=== PATIENT | female | born 1960 | race Two or more races ===

== ENCOUNTER 2018-12-02 20:13 | Emergency (ER) | payer SELFPAY ==
[~2018-12-02] VITALS: Ht 152.4 cm; Wt 68.0 kg
[2018-12-02] MEDS ORDERED: ATENOLOL25 MG ORAL (20:39)
--- NOTE | 2018-12-02 20:44 | NUR ---
ED Nurse Note: pt walked in due to left leg swelling and pain x 3 weeks. Pt is AO x 4times, VSS, on room air no distress. MARTINEZD seen Pt at bedside.
[2018-12-02 21:20] VITALS: BP 142/87
[2018-12-02] MEDS ORDERED: CEPHALEXIN500 MG ORAL (22:22)
[2018-12-02 22:35] VITALS: BP 144/75
--- NOTE | 2018-12-02 22:35 | NUR ---
ER DISCHARGE NOTE: Patient is cleared to be discharged per ERMD, pt is aox4, on room air, with stable vital signs. pt was given dc and prescription instructions, pt was able to verbalize understanding, pt id band removed without complications. pt is able to ambulate with steady gait with . pt took all belongings.
--- NOTE | 2018-12-03 01:09 | Emergency Room Report ---
History of Present Illness General Chief Complaint: Edema Source: Patient Present Illness HPI 58-year-old female presents ED for evaluation. Complaining of left leg pain and swelling 3 weeks. Pain is dull, 7 out of 10, nonradiating. Denies fevers or chills. Denies chest pain or shortness of breath. No other aggravating relieving factors. Denies any other associated symptoms Allergies: Coded Allergies: No Known Allergies (Unverified , 12/02/18) Patient History Past Medical History: HTN Past Surgical History: none Pertinent Family History: none Social History: Denies: smoking, alcohol use, drug use Last Menstrual Period: 8 years ago Now: No Immunizations: UTD Reviewed Nursing Documentation: PMH: Agreed; PSxH: Agreed Nursing Documentation-PMH Hx Hypertension: Yes - migraine Review of Systems All Other Systems: negative except mentioned in HPI Physical Exam Vital Signs Date Time Temp Pulse Resp B/P (MAP) Pulse Ox O2 Delivery O2 Flow Rate FiO2 12/02/18 20:32 98.4 59 16 197/90 95 Room Air Sp02 EP Interpretation: reviewed, normal General Appearance: no apparent distress, alert, GCS 15, non-toxic Head: normocephalic Eyes: bilateral eye normal inspection, bilateral eye PERRL ENT: normal ENT inspection Neck: normal inspection Respiratory: normal inspection Cardiovascular #1: normal inspection Gastrointestinal: normal inspection Rectal: deferred Genitourinary: no CVA tenderness Musculoskeletal: back normal, gait/station normal, normal range of motion, calf tenderness - L calf swelling, swelling Neurologic: alert, oriented x3, responsive, motor strength/tone normal, sensory intact, speech normal Psychiatric: normal inspection Skin: normal inspection Lymphatic: normal inspection Medical Decision Making Diagnostic Impression: Primary Impression: Cellulitis of lower extremity Qualified Codes: L03.116 - Cellulitis of left lower limb ER Course Hospital Course 58-year-old female present ED complaining of left calf pain and swelling Differential diagnoses include: DVT, cellulitis, contusion, abscess Clinical course Patient placed on stretcher after initial history and physical I ordered DVT US Doppler ultrasound shows no evidence of DVT there is some mild erythema and induration. Consideration for cellulitis. Patient afebrile, nontoxic appearing. discussed findings with patient and at bedside. We will discharge with antibiotics. Safe for discharge or close outpatient follow-up. Patient does not have a PMD. We'll provide referrals I. I feel this is a highly complex case requiring extensive working including EKG/Rhythm strip, Xray/CT/US, Blood/urine lab work, repeat exams while in ED, and administration of strong opiates/narcotics for pain control, admission to hospital or close patient follow up. Diagnosis - cellulitis of lower extremity Stable and discharged to home with Rx Keflex. Followup with PMD. Return to ED if symptoms recur or worsen CT/MRI/US Diagnostic Results CT/MRI/US Diagnostic Results : Imaging Test Ordered: DVT US Impression no evidence of DVT Last Vital Signs Date Time Temp Pulse Resp B/P (MAP) Pulse Ox O2 Delivery O2 Flow Rate FiO2 12/02/18 20:32 98.4 59 16 197/90 95 Room Air Status: improved Disposition: HOME, SELF-CARE Condition: Stable Scripts Cephalexin* (KEFLEX*) 500 Mg Capsule 500 MG ORAL EVERY 6 HOURS for 7 Days, CAP Prov: Bennie Carlisle MD 12/02/18 Referrals: [facility] Raquel Villeda. [facility] Patient Instructions: Cellulitis, [id number] Bennie Carlisle MD Dec 03, 2018 01:09
--- NOTE | 2018-12-03 11:32 | Diagnostic Imaging Report ---
Indication: Left lower extremity pain Technique: Grayscale and duplex images of the left lower extremity veins Comparison: none Findings: Grayscale and duplex images demonstrate no evidence of intraluminal thrombus. Normal phasic Doppler waveforms with normal augmentation response. No evidence of valvular insufficiency. Normal compressibility of all deep veins. Impression: Negative for evidence of left lower extremity deep venous thrombosis
== END 2018-12-02 22:35 | disposition home or self-care (01) ==
LOC: EMR 20:51
DX: L03.116 Cellulitis of left lower limb (principal); I10 Essential (primary) hypertension
CPT/HCPCS: 93971; 99284